=== PATIENT | female | born 2000 | race Hispanic/Latino ===

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

== ENCOUNTER 2019-04-10 21:46 | Emergency (ER) | payer OTHER ==
[~2019-04-10] VITALS: Ht 182.9 cm; Wt 117.9 kg
[2019-04-10] MEDS ORDERED: ONDANSETRON HCL 4 MG ORAL DISINTEGRATING TAB PO ONE (22:15)
[2019-04-10] MEDS ORDERED: KETOROLAC TROMETHAMINE 60 MG/2 ML VIAL IM ONE (22:15)
[2019-04-10] MEDS ORDERED: ONDANSETRON HCL 4 MG ORAL DISINTEGRATING TAB ONE (22:16)
[2019-04-10] MEDS ORDERED: KETOROLAC TROMETHAMINE 30 MG/ML VIAL ONE (22:16)
--- NOTE | 2019-04-10 22:52 | Diagnostic Imaging Report ---
EXAM: CT Abdomen and Pelvis WITHOUT contrast INDICATION: Left upper quadrant pain radiating to the left lower quadrant. Nausea and vomiting. COMPARISON: None. TECHNIQUE: Abdomen and pelvis were scanned utilizing a multidetector helical scanner from the lung base to the pubic symphysis without administration of IV contrast. Absence of intravenous contrast decreases sensitivity for detection of focal lesions and vascular pathology. Coronal and sagittal reformations were obtained. Routine protocol was performed. IV CONTRAST: None. ORAL CONTRAST: Water RADIATION DOSE: Total DLP: 849.87 mGy*cm Estimated effective dose: (DLP x 0.015 x size factor) mSv COMPLICATIONS: None FINDINGS: LINES and TUBES: None. LOWER THORAX: Unremarkable HEPATOBILIARY: No focal hepatic lesions. No biliary ductal dilation. GALLBLADDER: No radio-opaque stones or sludge. No wall thickening. SPLEEN: No splenomegaly. PANCREAS: No focal masses or ductal dilatation. ADRENALS: No adrenal nodules KIDNEYS/URETERS: No hydronephrosis. No cystic or solid mass lesions. No stones. GI TRACT: No abnormal distention, wall thickening, or evidence of bowel obstruction. Appendix is normal. PELVIC ORGANS/BLADDER: Unremarkable. LYMPH NODES: Mildly prominent right lower quadrant lymph nodes are nonspecific, otherwise no lymphadenopathy. VESSELS: Unremarkable. PERITONEUM / RETROPERITONEUM: Trace volume pelvic free fluid likely physiologic. There is a subtle, 3.8 cm fat attenuation structure abutting the anterior lateral aspect of the proximal descending colon, associated with mild surrounding fat stranding seen on coronal image 61, which may reflect mild evolving epiploic appendagitis. BONES: Unremarkable. SOFT TISSUES: Unremarkable. IMPRESSION: 1. Possible resolving mild left upper quadrant (descending colon) epiploic appendagitis, otherwise no acute abdominal pelvic abnormality. Signed by: Dr. Franny Estrella M.D. on 04/10/2019 10:50 PM
== END 2019-04-10 23:15 | disposition home or self-care (01) ==
LOC: FSED 21:46
DX: R10.12 Left upper quadrant pain (principal); R11.2 Nausea with vomiting, unspecified; K63.89 Other specified diseases of intestine
CPT/HCPCS: 74176; 80053; 80076; 81003; 81025; 85025; 96372; 99283; J1885; Q0162

== ENCOUNTER 2019-04-13 00:19 | Emergency (ER) | payer OTHER ==
[~2019-04-13] VITALS: Ht 180.3 cm; Wt 117.9 kg
--- OUTSIDE RECORDS SUMMARY | 2019-04-13 00:21 | XMS REPORT ---
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 Allergies, Adverse Reactions, Alerts This patient has no known allergies or adverse reactions. Medications This patient has no known medications. Results Test Description Test Time Test Comments Text Results Atomic Results Result Comments CT ABD/PEL WO CONTRAST-HOPD 2019-04-10 22:39:00 [place] [address] Patient Name: DMITRY DAWKINS MR #: [id number] : 2000 Age/Sex: 18/F Req #: [id number] Adm Physician: Ordered by: ORTEGA MAS MD Report #: [id number] Location: [facility] Room/Bed: Procedure: [id number] HOPD/CT ABD/PEL WO CONTRAST-HOPD Exam Date: 04/10/19 Exam Time: 2225 REPORT STATUS: Signed EXAM: CT Abdomen and Pelvis WITHOUT contrast INDICATION: Left upper quadrant pain radiating to the left lower quadrant. Nausea and vomiting. COMPARISON: None. TECHNIQUE: Abdomen and pelvis were scanned utilizing a multidetector helical scanner from the lung base to the pubic symphysis without administration of IV contrast. Absence of intravenous contrast decreases sensitivity for detection of focal lesions and vascular pa thology. Coronal and sagittal reformations were obtained. Routine protocol was performed. IV CONTRAST: None. ORAL CONTRAST: Water RADIATION DOSE: Total DLP: 849.87 mGy*cm Estimated effective dose: (DLP x 0.015 x size factor) mSv COMPLICATIONS: None FINDINGS: LINES and TUBES: None. LOWER THORAX: Unremarkable HEPATOBILIARY: No focal hepatic lesions. No biliary ductal dilation. GALLBLADDER: No radio-opaque stones or sludge. No wall thickening. SPLEEN: No splenomegaly. PANCREAS: No focal masses or ductal dilatation. ADRENALS: No adrenal nodules KIDNEYS/URETERS: No hydronephrosis. No cystic or solid mass lesions. No stones. GI TRACT: No abnormal distention, wall thickening, or evidence of bowel obstruction. Appendix is normal. PELVIC ORGANS/BLADDER: Unremarkable. LYMPH NODES: Mildly prominent right lower quadrant lymph nodes are nonspecific, otherwise no lymphadenopathy. VESSELS: Unremarkable. PERITONEUM / RETROPERITONEUM: Trace volume pelvic free fluid likely physiologic. There is a subtle, 3.8 cm fat attenuation structure abutting the anterior lateral aspect of the proximal descending colon, associated with mild surrounding fat stranding seen on coronal image 61, which may reflect mild evolving epiploic appendagitis. BONES: Unremarkable. SOFT TISSUES: Unremarkable. IMPRESSION: 1. Possible resolving mild left upper quadrant (descending colon) epiploic appendagitis, otherwise no acute abdominal pelvic abnormality. Signed by: Dr. Franny Weinstein M.D. on 04/10/2019 10:50 PM Dictated By: JENNYFER WEINSTEIN MD, MD 49 Transcribed By: CURT on 04/10/192249 COPY TO: ORTEGA MAS MD
--- NOTE | 2019-04-13 01:53 | Diagnostic Imaging Report ---
EXAM: CT Abdomen and Pelvis WITHOUT contrast INDICATION: Abdominal pain. COMPARISON: 04/10/2019. TECHNIQUE: Abdomen and pelvis were scanned utilizing a multidetector helical scanner from the lung base to the pubic symphysis without administration of IV contrast. Absence of intravenous contrast decreases sensitivity for detection of focal lesions and vascular pathology. Coronal and sagittal reformations were obtained. Routine protocol was performed. IV CONTRAST: None. ORAL CONTRAST: Water RADIATION DOSE: Total DLP: 818.86 mGy*cm Estimated effective dose: (DLP x 0.015 x size factor) mSv COMPLICATIONS: None FINDINGS: LINES and TUBES: None. LOWER THORAX: Unremarkable HEPATOBILIARY: The liver is diffuse hypodense compared to the spleen, consistent with diffuse hepatic diffuse hepatic steatosis. No focal hepatic lesions. No biliary ductal dilation. GALLBLADDER: No radio-opaque stones or sludge. No wall thickening. SPLEEN: No splenomegaly. PANCREAS: No focal masses or ductal dilatation. ADRENALS: No adrenal nodules KIDNEYS/URETERS: No hydronephrosis. No cystic or solid mass lesions. No stones. GI TRACT: No abnormal distention, wall thickening, or evidence of bowel obstruction. Appendix is normal. PELVIC ORGANS/BLADDER: Unremarkable. LYMPH NODES: Mildly prominent right lower quadrant lymph nodes and retroperitoneal lymph nodes are again observed which are nonspecific. VESSELS: Unremarkable. PERITONEUM / RETROPERITONEUM: No loculated fluid collections. Mild stranding about the proximal descending colon again observed, however, to lesser degree than on the prior examination. BONES: Unremarkable. SOFT TISSUES: Unremarkable. IMPRESSION: Mild fat stranding about the proximal descending colon again observed. No new abnormalities. Signed by: Dr. Franny Estrella M.D. on 04/13/2019 1:50 AM
== END 2019-04-13 02:02 | disposition home or self-care (01) ==
LOC: FSED 00:19
DX: R10.12 Left upper quadrant pain (principal); K63.89 Other specified diseases of intestine; F17.200 Nicotine dependence, unspecified, uncomplicated; F43.10 Post-traumatic stress disorder, unspecified; F41.9 Anxiety disorder, unspecified; F32.9 Major depressive disorder, single episode, unspecified; G47.00 Insomnia, unspecified
CPT/HCPCS: 74176; 99283

== ENCOUNTER 2019-11-05 16:58 | Emergency (ER) | payer OTHER ==
[~2019-11-05] VITALS: Ht 172.7 cm; Wt 102.1 kg
--- NOTE | 2019-11-05 17:18 | Emergency Department Note ---
History of Present Illnes History of Present Illness History of Present Illness This is a 19 year old female LLQ pain . Onset (how long ago): day(s) (CHAPINCITO MENDOZA DO) Historian: Patient Onset (how long ago): day(s) (2) Location: abdomen LLQ PAIN Quality: DULL Radiation: Denies non-radiation, Denies back, Denies neck, Denies extremity, Denies abdomen, Denies periumbilical, Denies flank, Denies proximal, Denies distal, Denies other Severity: mild Onset quality: gradual Duration (how long): day(s) (2) Timing of current episode: constant, intermittent Progression: waxing and waning Chronicity: new Context: Denies recent illness, Denies recent surgery, Denies recent immobilization, Denies recent travel, Denies trauma/injury, Denies new medications, Denies hx of DVT/PE, Denies non-compliance w/ medications, Denies other Relieving factors: none Exacerbating factors: none Associated symptoms: Reports denies other symptoms Treatments prior to arrival: none (ORTEGA MAS MD) Past Medical/Family History Physician Review I have reviewed the patient's past medical and family history. Any updates have been documented here. (CHAPINCITO MENDOZA DO) Past Medical History Recent Fever: No Clinical Suspicion of Infectio: No New/Unexplained Change in Ment: No Past Medical History: None Other Medical History: chronic abd pain PTSD ANXIETY DEPRESSION INSOMNIA Past Surgical History: T&A Other Surgery: Tonsillectomy Adnoidectomy (CHAPINCITO MENDOZA DO) Past Medical History: None Past Surgical History: None (ORTEGA MAS MD) Social History Smoking Cessation: Never Smoker Alcohol Use: None (ORTEGA MAS MD) Other Last Tetanus: UTD (CHAPINCITO MENDOZA DO) Review of Systems Review of Systems Constitutional: Reports no symptoms EENTM: Reports no symptoms Cardiovascular: Reports no symptoms Respiratory: Reports no symptoms Gastrointestinal: Reports abdominal pain Genitourinary: Reports no symptoms Musculoskeletal: Reports no symptoms Integumentary: Reports no symptoms Neurological: Reports no symptoms Psychological: Reports no symptoms Endocrine: Reports no symptoms Hematological/Lymphatic: Reports no symptoms (CHAPINCITO MENDOZA DO) Constitutional: Reports no symptoms EENTM: Reports no symptoms Cardiovascular: Reports no symptoms Respiratory: Reports no symptoms Gastrointestinal: Reports as per HPI Genitourinary: Reports no symptoms Musculoskeletal: Reports no symptoms Integumentary: Reports no symptoms Neurological: Reports no symptoms Psychological: Reports no symptoms Endocrine: Reports no symptoms Hematological/Lymphatic: Reports no symptoms (ORTEGA MAS MD) Physical Exam Related Data Allergies: Coded Allergies: No Known Allergies (Unverified , 12/02/15) Vital signs reviewed: Yes (ORTEGA MAS MD) Physical Exam CONSTITUTIONAL HENT EYES NECK PULMONARY CARDIOVASCULAR GASTROINTESTINAL GENITOURINARY SKIN MUSCULOSKELETAL NEUROLOGICAL PSYCHOLOGICAL (CHAPINCITO MENDOZA DO) Constitutional: Present well-developed, Present well-nourished HENT: Present normocephalic, Present atraumatic, Present oropharynx clear/moist, Present nose normal HENT L/R: Present left ext ear normal, Present right ext ear normal Eyes: Reports PERRL, Reports conjunctivae normal Neck: Present ROM normal Pulmonary: Present effort normal, Present breath sounds normal Cardiovascular: Present regular rhythm, Present heart sounds normal, Present capillary refill normal, Present normal rate Abdominal: Present soft, Present bowel sounds normal, Present tender (LLQ) Genitourinary: Present exam deferred Skin: Present warm, Present dry Musculoskeletal: Present ROM normal Neurological: Present alert, Present oriented x 3, Present no gross motor or sensory deficits Psychological: Present mood/affect normal, Present judgement normal (ORTEGA MAS MD) Results Laboratory Lab results reviewed: Yes (ORTEGA MAS MD) Imaging Imaging results reviewed: Yes Impressions [place] [address] Patient Name: DMITRY DAWKINS MR #: [id number] : 2000 Age/Sex: 19/F Req #: [id number] Adm Physician: Ordered by: CHAPINCITO MENDOZA DO Report #: [id number] [facility] Room/Bed: Procedure: [id number] HOPD/CT ABD/PEL WO CONTRAST-HOPD Exam Date: 11/05/19 Exam Time: 1811 REPORT STATUS: Signed EXAM: CT Abdomen and Pelvis WITHOUT contrast INDICATION: Left lower quadrant abdominal pain. COMPARISON: Multiple prior CT abdomen and pelvis examinations most recent dated 04/13/2019. TECHNIQUE: Abdomen and pelvis were scanned utilizing a multidetector helical scanner from the lung base to the pubic symphysis without administration of IV contrast. Absence of intravenous contrast decreases sensitivity for detection of focal lesions and vascular pathology. Coronal and sagittal reformations were obtained. Routine protocol was performed. IV CONTRAST: None. ORAL CONTRAST: Water RADIATION DOSE: Total DLP: 969.35 mGy*cm Estimated effective dose: (DLP x 0.015 x size factor) mSv COMPLICATIONS: None FINDINGS: LINES and TUBES: None. LOWER THORAX: Unremarkable HEPATOBILIARY: No focal hepatic lesions. No biliary ductal dilation. GALLBLADDER: No radio-opaque stones or sludge. No wall thickening. SPLEEN: No splenomegaly. PANCREAS: No focal masses or ductal dilatation. ADRENALS: No adrenal nodules KIDNEYS/URETERS: No hydronephrosis. No cystic or solid mass lesions. No stones. GI TRACT: The previously seen stranding about the proximal descending colon again has resolved. No abnormal distention, wall thickening, or evidence of bowel obstruction. Appendix is normal. PELVIC ORGANS/BLADDER: Unremarkable. LYMPH NODES: Mildly prominent mesenteric and retroperitoneal lymph nodes are again observed which are nonspecific. VESSELS: Unremarkable. PERITONEUM / RETROPERITONEUM: No loculated fluid collections. BONES: Unremarkable. SOFT TISSUES: Unremarkable. IMPRESSION: 1. Stable mildly prominent mesenteric and retroperitoneal lymph nodes are nonspecific likely reactive. 2. The previously seen stranding about the proximal descending colon again has resolved. 3. No new CT findings to correlate with patient's left lower quadrant pain. Signed by: Jonathan Javier MD on 11/05/2019 7:19 PM Dictated By: JONATHAN JAVIER MD 18 Transcribed By: CURT on 11/05/191918 COPY TO: CHAPINCITO MENDOZA DO~ (CHAPINCITO MENDOZA DO) Diagnostics Tests Diagnostic test(s) reviewed: Yes (ORTEGA MAS MD) Assessment & Plan Medical Decision Making MDM DIVERTICULITIS UTI (ORTEGA MAS MD) Reassessment Reassessment BETTER (ORTEGA MAS MD) Assessment & Plan Final Impression: (1) Abdominal pain, LLQ (left lower quadrant) (2) UTI (urinary tract infection) (ORTEGA MAS MD) Depart Disposition: HOME, SELF-snf Meds Active Scripts Sulfamethoxazole/Trimethoprim (BACTRIM DS TABLET) 1 Each Tablet, 1 TAB PO Q12H, #28 TAB Prov:GARLAND HERNANDEZ 11/07/19 Prednisone (PREDNISONE) 20 Mg Tab, 60 MG PO DAILY PRN for MODERATE PAIN (4-6), #15 TAB TAKE 3 20 MG PILLS Prov:GARLAND HERNANDEZ 11/07/19 Ondansetron (ONDANSETRON ODT) 8 Mg Tab.rapdis, 4 MG PO Q4HR PRN for NAUSEA AND VOMITING, #20 TAB 1 Refill Prov:GARLAND HERNANDEZ 11/07/19 Reported Medications [Takes No Daily Meds] No Conflict Check 06/10/16 CHAPINCITO MENDOZA DO Nov 05, 2019 17:18 ORTEGA MAS MD Nov 05, 2019 19:37
[2019-11-05] MEDS ORDERED: KETOROLAC TROMETHAMINE 60 MG/2 ML VIAL IM ONE (17:45)
--- OUTSIDE RECORDS SUMMARY | 2019-11-05 17:49 | XMS REPORT | Continuity of Care Document ---
Author Author [facility] t Organization [facility] Address [address] [place] [address] Phone Unavailable Care Team Providers Care Nut Grinder Name Role Phone NONSTAFF PCP Unavailable TIFFANIE LAGUNAS Attphys Unavailable ORTEGA MAS Attphys Unavailable Payers Payer Name Policy Type Policy Number Effective Date Expiration Date [id number] 2015 00:00:00 [facility] Problems This patient has no known problems. Allergies, Adverse Reactions, Alerts Allergy Name Allergy Type Status Severity Reaction(s) Onset Date Inacti ve Date Treating Clinician Comments Source No Known Allergies DA Active U 2019-08-27 00:00:00 [facility] Medications Ordered Medication Name Filled Medication Name Start Date Stop Da te Current Medication? Ordering Clinician Indication Dosage Frequency Signature (SIG) Comments Components Source Takes No Daily Meds Takes No Daily Meds Yes [facility] Cefdinir (Omnicef) 300 Mg Capsule, Cefdinir (Omnicef) 300 Mg Cap cody, 2016-06-10 00:00:[address] [facility] Naproxen (Naprosyn) 500 Mg Tablet, Naproxen (Naprosyn) 500 Mg Ta blet, 2016-06-10 00:00:[address] [facility] Ondansetron (Zofran Odt) 4 Mg Tab.rapdis, 4 Mg Ondanse luis antonio (Zofran Odt) 4 Mg Tab.rapdis, 4 Mg 2016-06-10 00:00:00 [address] [facility] Tylenol , Tylenol , 2015-12-02 00:00:[address] [facility] Procedures This patient has no known procedures. Encounters Start Date/Time End Date/Time [facility] ID Source 2019-04-13 00:19:00 2019-04-13 02:02:00 Departed Emergency Room 1 TIFFANIE LAGUNAS [facility] [id number] [facility] 2019-04-10 21:46:00 2019-04-10 23:15:00 Departed Emergency Room 1 ORTEGA MAS [facility] [id number] [facility] 2018-03-09 22:52:00 2018-03-10 00:04:00 Departed Emergency Room [facility] [id number] [facility] 2017-05-25 08:30:00 2017-05-25 09:55:00 Departed Emergency Room [facility] [id number] [facility] 2017-05-23 09:16:00 2017-05-23 12:06:00 Departed Emergency Room [facility] [id number] [facility] Results Test Description Test Time Test Comments Results Result Comments Source - CT ABD PELVIS W/CONT 2019-08-27 21:48:00 David e: DMITRY DAWKINS [facility] FSED : 2000 Age/S: 19 / F [address] [facility] [address] Unit #: [id number] Loc: [address] Phys: Brandon Kim MD [place], [place] [address] Acct: [id number] Dis Date: Status: PRE ER PHONE #: Exam Date: 08/27/20198 FAX #: Reason: l sided abd pain, n/v EXAMS: CPT CODE: [id number] CT ABD PELVIS W/CONT 27353 EXAM: CT of the abdomen and pelvis with contrast; INFORMATION: Left-sided abdominal pain, nausea and vomiting; TECHNIQUE: CT dose reduction protocol; 5 mm cuts were obtained through the abdomen and pelvis during and after intravenous infusion of contrast material. FINDINGS: Liver, spleen and pancreas are of normal size and shape; they show homogeneous enhancement without focal lesions. No abnormalities of the biliary system. Adrenal glands and kidneys are unremarkable; no evidence of adenopathy; No evidence of appendicitis or other acute bowel abnormalities. No pelvic mass lesions. No abnormal fluid collections. Scans through the lung bases are clear. IMPRESSION: No evidence of acute abdominal or pelvic abnormalities. Location code: [facility] at 2147 Reported and signed by: Hugo Ma M.D. CC: Brandon Kim MD Technologist:Norma Khan CTDI: DLP: Trnscb Date/Time: 08/27/2019 (2147) [email or web address] Orig Print D/T: S: 08/27/2019 (2150) PAGE 1 Signed Report BASIC METABOLIC PANEL 2019-08-27 21:16:00 Test Item SODIUM (test code = NA) 143 mmol/L 128-145 N POTASSIUM (test code = K) 3.7 mmol/L 3.5-5.1 N CHLORIDE (test code = CL) 107.0 mmol/L 98-107 N CARBON DIOXIDE (test code = CO2) 27.8 mmol/L 22-29 N ANION GAP (test code = GAP) 12 mmol/L 10-20 N GLUCOSE (test code = GLU) 94 mg/dL 70-110 N BLOOD UREA NITROGEN (test code = BUN) 8 mg/dL 7-22 N GLOMERULAR FILTRATION RATE (test code = GFR) > 60 mL/min >=60 Estimated GFR by using Modified MDRD formula.Chronic kidney disease is defined as either kidney damageor GFR <60 mL/min/1.73 m2 for >3 months. CREATININE (test code = CREAT) 0.68 mg/dL 0.55-1.3 N BUN/CREATININE RATIO (test code = BUN/CREA) 11.8 10-20 N CALCIUM (test code = CA) 8.8 mg/dL 8.0-10.5 N HEPATIC FUNCTION [id number] 21:16:00* Test Item Value Reference Range Interpretation Comments TOTAL PROTEIN (test code = PROT) 7.0 gram/dL 6.1-7.8 N ALBUMIN (test code = ALB) 3.8 g/dL 3.3-4.4 N GLOBULIN (test code = GLOB) 3.2 G/DL 1-10 N ALBUMIN/GLOBULIN RATIO (test code = A/G) 1.2 0.75-1.50 N BILIRUBIN TOTAL (test code = BILT) 0.10 mg/dL 0.2-1.2 L BILIRUBIN DIRECT (test code = BILD) 0.00 mg/dL 0.0-0.30 N SGOT/AST (test code = AST) 10 U/L 10-39 N SGPT/ALT (test code = ALT) 30 U/L 10-69 N ALKALINE PHOSPHATASE TOTAL (test code = ALKP) 86 U/L 50-139 N [id number] 21:16:00* Test Item Value Reference Range Interpretation Comments LIPASE (test code = LIP) 116 Unit/L 144-286 L HCG SERUM [id number] 21:16:00* Test Item Value Reference Range Interpretation Comments HCG SERUM QUAL (test code = HCGQL) NEGATIVE NEGATIVE This HCGQL test is NOT applicable for MALE patients.Check with nurse about probable order error.If Tumor Marker Test needed, nurse should order test "HCGTU"(Test #550.15785) BASIC METABOLIC [id number] 21:06:00* Test Item Value Reference Range Interpretation Comments SODIUM (test code = NA) 143 mmol/L 128-145 N POTASSIUM (test code = K) 3.7 mmol/L 3.5-5.1 N CHLORIDE (test code = CL) 107.0 mmol/L 98-107 N CARBON DIOXIDE (test code = CO2) 27.8 mmol/L 22-29 N ANION GAP (test code = GAP) 12 mmol/L 10-20 N GLUCOSE (test code = GLU) 94 mg/dL 70-110 N BLOOD UREA NITROGEN (test code = BUN) 8 mg/dL 7-22 N GLOMERULAR FILTRATION RATE (test code = GFR) > 60 mL/min >=60 Estimated GFR by using Modified MDRD formula.Chronic kidney disease is defined as either kidney damageor GFR <60 mL/min/1.73 m2 for >3 months. CREATININE (test code = CREAT) 0.68 mg/dL 0.55-1.3 N BUN/CREATININE RATIO (test code = BUN/CREA) 11.8 10-20 N CALCIUM (test code = CA) 8.8 mg/dL 8.0-10.5 N HEPATIC FUNCTION [id number] 21:06:00* Test Item Value Reference Range Interpretation Comments TOTAL PROTEIN (test code = PROT) gram/dL 6.4-8.2 ALBUMIN (test code = ALB) g/dL 3.4-5.0 GLOBULIN (test code = GLOB) G/DL 1-10 ALBUMIN/GLOBULIN RATIO (test code = A/G) 0.75-1.50 BILIRUBIN TOTAL (test code = BILT) mg/dL 0.0-1.0 BILIRUBIN DIRECT (test code = BILD) mg/dL 0.0-0.20 SGOT/AST (test code = AST) IUnit/L 15-37 SGPT/ALT (test code = ALT) IUnit/L 12-78 ALKALINE PHOSPHATASE TOTAL (test code = ALKP) IUnit/L 45-117 [id number] 21:06:00* Test Item Value Reference Range Interpretation Comments LIPASE (test code = LIP) U/L 73.0-393.0 HCG SERUM [id number] 21:06:00* Test Item Value Reference Range Interpretation Comments HCG SERUM QUAL (test code = HCGQL) NEGATIVE NEGATIVE This HCGQL test is NOT applicable for MALE patients.Check with nurse about probable order error.If Tumor Marker Test needed, nurse should order test "HCGTU"(Test #550.50971) BASIC METABOLIC [id number] 21:04:00* Test Item Value Reference Range Interpretation Comments SODIUM (test code = NA) mmol/L 136-145 POTASSIUM (test code = K) mmol/L 3.5-5.1 CHLORIDE (test code = CL) mmol/L 98-107 CARBON DIOXIDE (test code = CO2) mmol/L 21-32 ANION GAP (test code = GAP) mmol/L 10-20 GLUCOSE (test code = GLU) mg/dL 70-110 BLOOD UREA NITROGEN (test code = BUN) mg/dL 7-22 GLOMERULAR FILTRATION RATE (test code = GFR) mL/min >=60 CREATININE (test code = CREAT) mg/dL 0.55-1.02 BUN/CREATININE RATIO (test code = BUN/CREA) 10-20 CALCIUM (test code = CA) mg/dL 8.5-10.1 HEPATIC FUNCTION [id number] 21:04:00* Test Item Value Reference Range Interpretation Comments TOTAL PROTEIN (test code = PROT) gram/dL 6.4-8.2 ALBUMIN (test code = ALB) g/dL 3.4-5.0 GLOBULIN (test code = GLOB) G/DL 1-10 ALBUMIN/GLOBULIN RATIO (test code = A/G) 0.75-1.50 BILIRUBIN TOTAL (test code = BILT) mg/dL 0.0-1.0 BILIRUBIN DIRECT (test code = BILD) mg/dL 0.0-0.20 SGOT/AST (test code = AST) IUnit/L 15-37 SGPT/ALT (test code = ALT) IUnit/L 12-78 ALKALINE PHOSPHATASE TOTAL (test code = ALKP) IUnit/L 45-117 [id number] 21:04:00* Test Item Value Reference Range Interpretation Comments LIPASE (test code = LIP) U/L 73.0-393.0 HCG SERUM [id number] 21:04:00* Test Item Value Reference Range Interpretation Comments HCG SERUM QUAL (test code = HCGQL) NEGATIVE NEGATIVE This HCGQL test is NOT applicable for MALE patients.Check with nurse about probable order error.If Tumor Marker Test needed, nurse should order test "HCGTU"(Test #550.64594) CBC W/O [id number] 20:57:00* Test Item Value Reference Range Interpretation Comments WHITE BLOOD CELL (test code = WBC) 10.2 K/mm3 4.5-12.5 N RED BLOOD CELL (test code = RBC) 5.17 mill/mm3 3.7-5.2 N HEMOGLOBIN (test code = HGB) 11.4 gram/dL 11.5-15.5 L HEMATOCRIT (test code = HCT) 37.3 % 36.0-46.0 N MEAN CELL VOLUME (test code = MCV) 72.1 fL 80-98 L MEAN CELL HGB (test code = MCH) 22.1 picogram 27.0-33.0 L MEAN CELL HGB CONCETRATION (test code = MCHC) 30.6 gram/dL 33.0-36. 0 L RED CELL DISTRIBUTION WIDTH (test code = RDW) 17.6 % 11.6-16. 2 H RED CELL DISTRIBUTION WIDTH SD (test code = RDW-SD) 44.9 fL 37 .0-51.0 N PLATELET COUNT (test code = PLT) 359 K/mm3 150-450 N MEAN PLATELET VOLUME (test code = MPV) 8.8 fL 6.7-11.0 N URINALYSIS [id number] 20:27:00* Test Item Value Reference Range Interpretation Comments UA COLOR (test code = COLU) YELLOW YELLOW UA APPEARANCE (test code = APPU) CLOUDY CLEAR A UA GLUCOSE DIPSTICK (test code = DGLUU) NEGATIVE mg/dL NEGATIVE UA BILIRUBIN DIPSTICK (test code = BILU) NEGATIVE NEGATIVE UA KETONE DIPSTICK (test code = KETU) NEGATIVE mg/dL NEGATIVE UA SPECIFIC GRAVITY (test code = SGU) 1.020 1.001-1.035 UA BLOOD DIPSTICK (test code = ROBB) 1+ (Small) NEGATIVE A UA PH DIPSTICK (test code = GEOVANI) 8.0 5.0-8.0 UA PROTEIN DIPSTICK (test code = PROU) TRACE (15) mg/dL Neg-15 UA UROBILINIOGEN DIPSTICK (test code = URO) 1 mg/dL (1+) mg/dL 0.0 -0.2 UA NITRITE DIPSTICK (test code = ABRAHAN) NEGATIVE NEGATIVE UA LEUKOCYTE ESTERASE DIPSTICK (test code = LEUU) 2+ uL NEGA TIVE A UA MICROSCOPIC NEEDED? (test code = UAMICRO) YES UA WBC (test code = WBCU) 3-5 per HPF 0-5 UA RBC (test code = RBCU) 0-3 per HPF 0-5 UA EPITHELIAL CELLS (test code = EPIU) Moderate (5-10/hpf) per HPF Few UA BACTERIA (test code = BACU) FEW per HPF NONE UA AMORPHOUS SEDIMENT (test code = AMORU) MANY per LPF NONE A Urine Source? Clean CatchURINALYSIS [id number] 20:24:00* Test Item Value Reference Range Interpretation Comments UA COLOR (test code = COLU) YELLOW YELLOW UA APPEARANCE (test code = APPU) CLOUDY CLEAR A UA GLUCOSE DIPSTICK (test code = DGLUU) NEGATIVE mg/dL NEGATIVE UA BILIRUBIN DIPSTICK (test code = BILU) NEGATIVE NEGATIVE UA KETONE DIPSTICK (test code = KETU) NEGATIVE mg/dL NEGATIVE UA SPECIFIC GRAVITY (test code = SGU) 1.020 1.001-1.035 UA BLOOD DIPSTICK (test code = ROBB) 1+ (Small) NEGATIVE A UA PH DIPSTICK (test code = GEOVANI) 8.0 5.0-8.0 UA PROTEIN DIPSTICK (test code = PROU) TRACE (15) mg/dL Neg-15 UA UROBILINIOGEN DIPSTICK (test code = URO) 1 mg/dL (1+) mg/dL 0.0 -0.2 UA NITRITE DIPSTICK (test code = ABRAHAN) NEGATIVE NEGATIVE UA LEUKOCYTE ESTERASE DIPSTICK (test code = LEUU) 2+ uL NEGA TIVE A UA MICROSCOPIC NEEDED? (test code = UAMICRO) UA WBC (test code = WBCU) per HPF 0-5 UA RBC (test code = RBCU) per HPF 0-5 UA EPITHELIAL CELLS (test code = EPIU) per HPF Few UA BACTERIA (test code = BACU) per HPF NONE Urine Source? Clean CatchCT ABD/PEL WO [id number] 01:42:00 [place] [address] Patient Name: DMITRY DAWKINS MR #: [id number] : 0 2000 Age/Sex: 18/F Req #: [id number] Adm Physician: Ordered by: TIFFANIE LAGUNAS MD Report #: [id number] Location: [facility] Room/Bed: Procedure: 0208 -0001 HOPD/CT ABD/PEL WO CONTRAST-HOPD Exam Date: 04/13/19 Exam Time: 0105 REPORT STATU S: Signed EXAM: CT Abdomen and Pelvis WITHOUT contrast INDICATION: Abdomi nal pain. COMPARISON: 04/10/2019. TECHNIQUE: Abdomen and pelvis were scanned u tilizing a multidetector helical scanner from the lung base to the pubic symph ysis without administration of IV contrast. Absence of intravenous contrast de creases sensitivity for detection of focal lesions and vascular pathology. Cor onal and sagittal reformations were obtained. Routine protocol was performed. IV CONTRAST: None. ORAL CONTRAST: Water RADIATION DOSE: Total DLP: 818.86 mGy*cm Estimated effective d ose: (DLP x 0.015 x size factor) mSv COMPLICATIONS: None FIND INGS: LINES and TUBES: None. LOWER THORAX: Unremarkable HEPATOBI LIARY: The liver is diffuse hypodense compared to the spleen, consistent with diffuse hepatic diffuse hepatic steatosis. No focal hepatic lesions. No bilia ry ductal dilation. GALLBLADDER: No radio-opaque stones or sludge. No wal l thickening. SPLEEN: No splenomegaly. PANCREAS: No focal masses or d uctal dilatation. ADRENALS: No adrenal nodules KIDNEYS/URETERS: No hydronephrosis. No cystic or solid mass lesions. No stones. GI TRACT: No abnormal distention, wall thickening, or evidence of bowel obstruction. Appendix is normal. PELVIC ORGANS/BLADDER: Unremarkable. LYMPH N ODES: Mildly prominent right lower quadrant lymph nodes and retroperitoneal ly mph nodes are again observed which are nonspecific. VESSELS: Unremarkable. PERITONEUM / RETROPERITONEUM: No loculated fluid collections. Mild stranding about the proximal descending colon again observed, however, to lesser degree than on the prior examination. BONES: Unremarkable. SOFT TISSUES: Unremarkable. IMPRESSION: Mild fat stranding about the p roximal descending colon again observed. No new abnormalities. Signed by: Dr. Franny Weinstein M.D. on 04/13/2019 1:50 AM Dictated By: JENNYFER RAMIRES MD, MD 9 T ranscribed By: CURT on 04/13/19149 COPY TO: TIFFANIE LAGUNAS MD CT ABD/PEL WO [id number] 22:39:00 [place] [address] Patient Name: DMITRY DAWKINS MR #: [id number] : 2000 Age/Sex: 18/F Req #: [id number] Adm Physician: Ordered by: ORTEGA MAS MD Report #: [id number] Location: [facility] Room/Bed: Procedure: 0205 -0003 HOPD/CT ABD/PEL WO CONTRAST-HOPD Exam Date: 04/10/19 Exam Time: 2224 REPORT STATU S: Signed EXAM: CT Abdomen and Pelvis WITHOUT contrast INDICATION: Left u pper quadrant pain radiating to the left lower quadrant. Nausea and vomiting. COMPARISON: None. TECHNIQUE: Abdomen and pelvis were scanned utilizing a [facility] tid[facility] helical scanner from the lung base to the pubic symphysis without a dministration of IV contrast. Absence of intravenous contrast decreases sensit ivity for detection of focal lesions and vascular pathology. Coronal and sagit missael reformations were obtained. Routine protocol was performed. IV CONTRAST: None. ORAL CONTRAST: Water RADIATION D OSE: Total DLP: 849.87 mGy*cm Estimated effective dose: (DLP x 0. 015 x size factor) mSv COMPLICATIONS: None FINDINGS: RADHA ES and TUBES: None. LOWER THORAX: Unremarkable HEPATOBILIARY: No focal hepatic lesions. No biliary ductal dilation. GALLBLADDER: No radio- opaque stones or sludge. No wall thickening. SPLEEN: No splenomegaly. PANCREAS: No focal masses or ductal dilatation. ADRENALS: No adrenal no dules KIDNEYS/URETERS: No hydronephrosis. No cystic or solid mass lesi ons. No stones. GI TRACT: No abnormal distention, wall thickening, or ev idence of bowel obstruction. Appendix is normal. PELVIC ORGANS/ELI DDER: Unremarkable. LYMPH NODES: Mildly prominent right lower quadrant lymp h nodes are nonspecific, otherwise no lymphadenopathy. VESSELS: Unremarka ble. PERITONEUM / RETROPERITONEUM: Trace volume pelvic free fluid likely physiologic. There is a subtle, 3.8 cm fat attenuation structure abutting the anterior lateral aspect of the proximal descending colon, associated with mild surrounding fat stranding seen on coronal image 61, which may reflect mild ev olving epiploic appendagitis. BONES: Unremarkable. SOFT TISSUES: Unr emarkable. IMPRESSION: 1. Possible resolving mild left uppe r quadrant (descending colon) epiploic appendagitis, otherwise no acute abdomi nal pelvic abnormality. Signed by: Dr. Franny Weinstein M.D. on 04/10/19 10:50 PM Dictated By: JENNYFER WEINSTEIN MD, MD 49 Transcribed By: CURT on 04/10/192249 COPY TO: ORTEGA MAS MD Group A Streptococcus Screen 2017-05-23 11:34:00* Test Item Value Reference Range Interpretation Comments Group A Streptococcus Screen (test code = 50486-7) NEGATIVE [facility] Streptococcus [id number] 11:34:00* Test Item Value Reference Range Interpretation Comments Group A Streptococcus Screen (test code = 27177-4) NEGATIVE [facility] Streptococcus [id number] 11:34:00* Test Item Value Reference Range Interpretation Comments Group A Streptococcus Screen (test code = 70596-4) NEGATIVE [facility] Virus Types A,B Antigen 2017-05-23 10:44:00* Test Item Value Reference Range Interpretation Comments Influenza Virus Types A,B Antigen (test code = 58432-1) [facility]GATIVE [facility]GATIVE [facility],B Antigen 2017-05-23 10:44:00* Test Item Value Reference Range Interpretation Comments Influenza Virus Types A,B Antigen (test code = 19773-8) [facility]GATIVE [facility]GATIVE [facility] A,B Antigen 2017-05-23 10:44:00* Test Item Value Reference Range Interpretation Comments Influenza Virus Types A,B Antigen (test code = 82143-2) NEGATIVE NEGATIVE [facility]
[2019-11-05] MEDS ORDERED: KETOROLAC TROMETHAMINE 60 MG/2 ML VIAL ONE (18:13)
--- NOTE | 2019-11-05 19:23 | Diagnostic Imaging Report ---
EXAM: CT Abdomen and Pelvis WITHOUT contrast INDICATION: Left lower quadrant abdominal pain. COMPARISON: Multiple prior CT abdomen and pelvis examinations most recent dated 04/13/2019. TECHNIQUE: Abdomen and pelvis were scanned utilizing a multidetector helical scanner from the lung base to the pubic symphysis without administration of IV contrast. Absence of intravenous contrast decreases sensitivity for detection of focal lesions and vascular pathology. Coronal and sagittal reformations were obtained. Routine protocol was performed. IV CONTRAST: None. ORAL CONTRAST: Water RADIATION DOSE: Total DLP: 969.35 mGy*cm Estimated effective dose: (DLP x 0.015 x size factor) mSv COMPLICATIONS: None FINDINGS: LINES and TUBES: None. LOWER THORAX: Unremarkable HEPATOBILIARY: No focal hepatic lesions. No biliary ductal dilation. GALLBLADDER: No radio-opaque stones or sludge. No wall thickening. SPLEEN: No splenomegaly. PANCREAS: No focal masses or ductal dilatation. ADRENALS: No adrenal nodules KIDNEYS/URETERS: No hydronephrosis. No cystic or solid mass lesions. No stones. GI TRACT: The previously seen stranding about the proximal descending colon again has resolved. No abnormal distention, wall thickening, or evidence of bowel obstruction. Appendix is normal. PELVIC ORGANS/BLADDER: Unremarkable. LYMPH NODES: Mildly prominent mesenteric and retroperitoneal lymph nodes are again observed which are nonspecific. VESSELS: Unremarkable. PERITONEUM / RETROPERITONEUM: No loculated fluid collections. BONES: Unremarkable. SOFT TISSUES: Unremarkable. IMPRESSION: 1. Stable mildly prominent mesenteric and retroperitoneal lymph nodes are nonspecific likely reactive. 2. The previously seen stranding about the proximal descending colon again has resolved. 3. No new CT findings to correlate with patient's left lower quadrant pain. Signed by: Jonathan Marquez MD on 11/05/2019 7:19 PM
[2019-11-05 19:41] VITALS: BP 125/68
== END 2019-11-05 19:46 | disposition home or self-care (01) ==
LOC: FSED 16:58
DX: R10.32 Left lower quadrant pain (principal); N39.0 Urinary tract infection, site not specified; F43.10 Post-traumatic stress disorder, unspecified
CPT/HCPCS: 74176; 81003; 99284; J1885

== ENCOUNTER 2019-11-07 21:47 | Emergency (ER) | payer OTHER ==
[~2019-11-07] VITALS: Ht 172.7 cm; Wt 102.1 kg
[2019-11-07] MEDS ORDERED: CEFTRIAXONE SOD 1 GM VIAL IM STA (22:11)
[2019-11-07] MEDS ORDERED: ONDANSETRON HCL 4 MG ORAL DISINTEGRATING TAB PO ONE (22:15)
[2019-11-07] MEDS ORDERED: KETOROLAC TROMETHAMINE 60 MG/2 ML VIAL IM ONE (22:15)
[2019-11-07] MEDS ORDERED: ONDANSETRON HCL 4 MG ORAL DISINTEGRATING TAB ONE (22:20)
[2019-11-07] MEDS ORDERED: CEFTRIAXONE SOD 1 GM VIAL ONE (22:20)
--- OUTSIDE RECORDS SUMMARY | 2019-11-07 22:20 | XMS REPORT | Continuity of Care Document ---
Author Author [facility] t Organization [facility] Address [address] [place] [address] Phone Unavailable Care Team Providers Care Director Of Safety And Security Name Role Phone NONSTAFF PCP Unavailable CHAPINCITO MENDOZA Attphys Unavailable TIFFANIE LAGUNAS Attphys Unavailable ORTEGA MAS Attphys Unavailable Payers Payer Name Policy Type Policy Number Effective Date Expiration Date S anum [facility] [id number] 2019 00:00:00 [facility] [id number] 2015 00:00:00 [facility] Problems Condition Name Condition Details Condition Category Status Onset Date Resolution Date Last Treatment Date Treating Clinician Comments Source Left lower quadrant abdominal pain Problem Active [facility] Urinary tract infection Problem Active [facility] Allergies, Adverse Reactions, Alerts Allergy Name Allergy Type Status Severity Reaction(s) Onset Date Inacti ve Date Treating Clinician Comments Source No Known Allergies DA Active U 2019-08-27 00:00:00 [facility] Social History Social Habit Start Date Stop Date Quantity Comments Source Sex Assigned At 2000 00:00:00 2000 00:00:00 Female [facility] Medications Ordered Medication Name Filled Medication Name Start Date Stop Da te Current Medication? Ordering Clinician Indication Dosage Frequency Signature (SIG) Comments Components Source Takes No Daily Meds Takes No Daily Meds Yes [facility] Cefdinir (Omnicef) 300 Mg CAPSULE Cefdinir (Omnicef) 300 Mg CAPS ULE 2016-06-10 00:00:00 No [facility] Naproxen (Naprosyn) 500 Mg TABLET Naproxen (Naprosyn) 500 Mg TAB LET 2016-06-10 00:00:00 No [facility] Ondansetron (Zofran Odt) 4 Mg TAB.RAPDIS Ondansetron ( Zofran Odt) 4 Mg TAB.RAPDIS 2016-06-10 00:00:00 No 4 Every 6 Hours [facility] Tylenol Tylenol 2015-12-02 00:00:00 No [facility] Vital Signs Vital Name Observation Time Observation Value Comments Source Weight 2019-11-05 17:00:00 225 [lb_av] [facility] BMI (Body Mass Index) 2019-11-05 17:00:00 34.2 kg/m2 [facility] Procedures This patient has no known procedures. Plan of Care Planned Activity Planned Date Details Comments Source Instructions Abdominal Pain - Adult [facility] Instructions Urinary Tract Infection - Women [facility] Encounters Start Date/Time End Date/Time Encounter Type Admission Type Attendi [facility] Facility Care Department Encounter ID Source 2019-11-05 16:58:00 2019-11-05 19:46:00 Departed Emergency Room 1 CHAPINCITO MENDOZA [facility] [id number] [facility] 2019-04-12 23:19:00 2019-04-13 01:02:00 Departed Emergency Room 1 TIFFANIE LAGUNAS [facility] [id number] [facility] 2019-04-10 20:46:00 2019-04-10 22:15:00 Departed Emergency Room 1 ORTEGA MAS [facility] [id number] [facility] 2018-03-09 22:52:00 2018-03-10 00:04:[address] [facility] [id number] [facility] 2017-05-25 08:30:00 2017-05-25 09:55:[address] [facility] [id number] [facility] 2017-05-23 09:16:00 2017-05-23 12:06:[address] [facility] [id number] [facility] Results Test Description Test Time Test Comments Results Result Comments Source CT ABD/PEL WO CONTRAST-HOPD 2019-11-05 18:56:00 [place] [address] Patient Name: DMITRY DAWKINS MR #: [id number] : 2000 Age/Sex: 19/F Req #: [id number] Adm Physician: Ordered by: CHAPINCITO MENDOZA DO Report #: [id number] Location: [facility] Room/Bed: Procedure: [id number] HOPD/CT ABD/PEL WO CONTRAST-HOPD Exam Date: 11/05/19 Exam Time: 1811 REPORT STATUS: Signed EXAM: CT Abdomen and Pelvis WITHOUT contrast INDICATION: Left lower quadrant abdominal pain. COMPARISON: Multiple prior CT abdomen and pelvis examinations most recent dated 04/13/2019. TECHNIQUE: Abdomen and pelvis were scanned utilizing a multi detector helical scanner from the lung base to the pubic symphysis without administration of IV contrast. Absence of intravenous contrast decreases sensitivity for detection of focal lesions and vascular pathology. Coronal and sagittal reformations were obtained. Routine protocol was performed. IV CONTRAST: None. ORAL CONTRAST: Water RADIATION DOSE: Total DLP: 969.35 mGy*cm Estimated effective dose: (DLP x 0.015 [...] solid mass lesions. No stones. GI TRACT: The previously seen s tranding about the proximal descending colon again has resolved. No abnormal distention, wall thickening, or evidence of bowel obstruction. Appendix is normal. PELVIC ORGANS/BLADDER: Unremarkable. LYMPH NODES: Mildly prominent mesenteric and retroperitoneal lymph nodes are again observed which are nonspecific. VESSELS: Unremarkable. PERITONEUM / RETROPERITONEUM: No loculated fluid collections. BONES: Unremarkable. SOFT TISSUES: Unremarkable. IMPRESSION: 1. Stable mildly prominent mesenteric and retroperitoneal lymph nodes are nonspecific likely reactive. 2. The previously seen stranding about the proximal descending colon again has resolved. 3. No new CT findings to correlate with patient's left lower quadrant pain. Signed by: Jonathan Javier MD on 11/05/2019 7:19 PM Dictated By: JONATHAN JAVIER MD 18 Transcribed By: CURT on 11/05/191918 COPY TO: CHAPINCITO MENDOZA DO - CT ABD PELVIS W/CONT 2019-08-27 21:48:00 Nam e: DMITRY DAWKINS [facility] : 2000 Age/S: 19 / F [address] [facility] Unit #: [id number] Loc: [address] Phys: Brandon Kim MD [place], [place] [address] Acct: [id number] Dis Date: Status: PRE ER PHONE #: Exam Date: 08/27/20196 FAX #: Reason: l sided abd pain, n/v EXAMS: CPT CODE: [id number] CT ABD PELVIS W/CONT 97377 EXAM: CT of the abdomen and pelvis [...] acute abdominal or pelvic abnormalities. Location code: at 2147 Reported and signed by: Hugo Ma M.D. CC: Brandon Kim MD Technologist:Norma Khan CTDI: DLP: Trnscb Date/Time: 08/27/2019 (2147) [email or web address] Orig Print D/T: S: 08/27/2019 (2150) PAGE [...] CA) 8.8 mg/dL 8.0-10.5 N HEPATIC FUNCTION [id number] 21:16:00* Test Item Value Reference Range Interpretation [...] code = ALKP) 86 U/L 50-139 N [id number] 21:16:00* Test Item Value Reference Range Interpretation Comments LIPASE (test code = LIP) 116 Unit/L 144-286 L HCG SERUM [id number] 21:16:00* Test Item Value Reference Range Interpretation Comments HCG SERUM QUAL (test code = HCGQL) NEGATIVE NEGATIVE This HCGQL test is NOT applicable for MALE patients.Check with nurse about probable order error.If Tumor Marker Test needed, nurse should order test "HCGTU"(Test #550.86068) BASIC METABOLIC [id number] 21:06:00* Test Item Value Reference Range Interpretation [...] CA) 8.8 mg/dL 8.0-10.5 N HEPATIC FUNCTION [id number] 21:06:00* Test Item Value Reference Range Interpretation [...] TOTAL (test code = ALKP) IUnit/L 45-117 [id number] 21:06:00* Test Item Value Reference Range Interpretation Comments LIPASE (test code = LIP) U/L 73.0-393.0 HCG SERUM [id number] 21:06:00* Test Item Value Reference Range Interpretation Comments HCG SERUM QUAL (test code = HCGQL) NEGATIVE NEGATIVE This HCGQL test is NOT applicable for MALE patients.Check with nurse about probable order error.If Tumor Marker Test needed, nurse should order test "HCGTU"(Test #550.59346) BASIC METABOLIC [id number] 21:04:00* Test Item Value Reference Range Interpretation [...] code = CA) mg/dL 8.5-10.1 HEPATIC FUNCTION [id number] 21:04:00* Test Item Value Reference Range Interpretation [...] TOTAL (test code = ALKP) IUnit/L 45-117 [id number] 21:04:00* Test Item Value Reference Range Interpretation Comments LIPASE (test code = LIP) U/L 73.0-393.0 HCG SERUM [id number] 21:04:00* Test Item Value Reference Range Interpretation Comments HCG SERUM QUAL (test code = HCGQL) NEGATIVE NEGATIVE This HCGQL test is NOT applicable for MALE patients.Check with nurse about probable order error.If Tumor Marker Test needed, nurse should order test "HCGTU"(Test #550.50799) CBC W/O [id number] 20:57:00* Test Item Value Reference Range Interpretation [...] = MPV) 8.8 fL 6.7-11.0 N URINALYSIS [id number] 20:27:00* Test Item Value Reference Range Interpretation [...] LPF NONE A Urine Source? Clean CatchURINALYSIS [id number] 20:24:00* Test Item Value Reference Range Interpretation [...] NONE Urine Source? Clean CatchCT ABD/PEL WO [id number] 01:42:00 [place] [address] Patient Name: DMITRY DAWKINS MR #: [id number] : 0 2000 Age/Sex: 18/F Req #: [id number] Adm Physician: Ordered by: TIFFANIE LAGUNAS MD Report #: [id number] Location: [facility] Room/Bed: Procedure: [id number] -[id number] HOPD/CT ABD/PEL WO [...] or solid mass lesions. No stones. GI TRACT : No abnormal distention, wall thickening, or evidence of bowel obstruction. Appendix is normal. PELVIC ORGANS/BLADDER: Unremarkable. LYMPH N ODES: Mildly prominent right lower quadrant lymph nodes and retroperitoneal ly mph nodes are again observed which are nonspecific. VESSELS: Unremarkable. PERITONEUM / RETROPERITONEUM: No loculated fluid collections. Mild strandin g about the proximal descending colon again observed, however, to lesser degre e than on the prior examination. BONES: Unremarkable. SOFT TISSUES: Unremarkable. IMPRESSION: Mild fat stranding about the p roximal descending colon again observed. No new abnormalities. Signed by: Dr. Franny Weinstein M.D. on 04/13/2019 1:50 AM Dictated By: JENNYFER RAMIRES MD, MD 9 T ranscribed By: CURT on 04/13/19149 COPY TO: TIFFANIE LAGUNAS MD CT ABD/PEL WO [id number] 22:39:00 [place] [address] Patient Name: DMITRY DAWKINS MR #: [id number] : 2000 Age/Sex: 18/F Req #: [id number] Adm Physician: Ordered by: ORTEGA MAS MD Report #: [id number] Location: [facility] Room/Bed: Procedure: [id number] HOPD/CT ABD/PEL WO CONTRAST-HOPD Exam Date: 04/10/19 Exam Time: 5 REPORT STATU S: Signed EXAM: CT Abdomen and Pelvis WITHOUT contrast INDICATION: Left u pper quadrant pain radiating to the left lower quadrant. Nausea and vomiting. COMPARISON: None. TECHNIQUE: Abdomen and pelvis were scanned utilizing a [facility] tidetector helical scanner from the lung base [...] Group A Streptococcus Screen (test code = 69394-2) NE[facility]IVE [facility] [id number] 11:34:00* Test Item Value Reference Range Interpretation Comments Group A Streptococcus Screen (test code = 89234-2) NEGATIVE [facility]G [facility]IVE [facility] Streptococcus [id number] 11:34:00* Test Item Value Reference Range Interpretation Comments Group A Streptococcus Screen (test code = 17286-0) [facility] 2017-05-23 10:44:00* Test Item Value Reference Range Interpretation Comments Influenza Virus Types A,B Antigen (test code = 04287-8) NEGATIVE NEGATIVE [facility],B Antigen 2017-05-23 10:44:00* Test Item Value Reference Range Interpretation Comments Influenza Virus Types A,B Antigen (test code = 22909-3) NEGATIVE NEGATIVE [facility] A,B Antigen 2017-05-23 10:44:00* Test Item Value Reference Range Interpretation Comments Influenza Virus Types A,B Antigen (test code = 66449-9) NEGATIVE NEGATIVE [facility]
--- NOTE | 2019-11-07 22:24 | Emergency Department Note ---
History of Present Illnes History of Present Illness Chief Complaint: suprapubic pain History of Present Illness This is a 19 year old female . Historian: Patient Arrival Mode: Car History limited by: condition of the patient (normal) Onset (how long ago): week(s) (1) Location: see above Quality: sharp Radiation: Reports back Severity: severe Onset quality: gradual Duration (how long): week(s) (1) Timing of current episode: constant Progression: worsening Chronicity: new Context: Denies recent illness, Denies recent surgery, Denies recent immobilization, Denies recent travel, Denies trauma/injury, Denies new medications, Denies hx of DVT/PE, Denies non-compliance w/ medications Relieving factors: none Exacerbating factors: movement Associated symptoms: Reports nausea/vomiting Treatments prior to arrival: none Past Medical/Family History Physician Review I have reviewed the patient's past medical and family history. Any updates have been documented here. Past Medical History Recent Fever: No Clinical Suspicion of Infectio: No New/Unexplained Change in Ment: No Past Medical History: None Other Medical History: PTSD ANXIETY DEPRESSION INSOMNIA Past Surgical History: None Other Surgery: Tonsillectomy Adnoidectomy Social History Smoking Cessation: Never Smoker Counseling Performed: No Any Illegal Drug Use: No TB Exposure/Symptoms: No Physically hurt or threatened: No Family History Family history of heart diseas: No Other Last Tetanus: UTD Any Pre-Existing Lines (PICC,: No Is patient up to date on immun: No Review of Systems Review of Systems Constitutional: Reports no symptoms EENTM: Reports no symptoms Cardiovascular: Reports no symptoms Respiratory: Reports no symptoms Gastrointestinal: Reports as per HPI Genitourinary: Reports no symptoms Musculoskeletal: Reports no symptoms Integumentary: Reports no symptoms Neurological: Reports no symptoms Psychological: Reports no symptoms Endocrine: Reports no symptoms Hematological/Lymphatic: Reports no symptoms Review of other systems: All other systems negative Physical Exam Related Data Allergies: Coded Allergies: No Known Allergies (Unverified , 12/02/15) Triage Vital Signs Vital Signs Date Time Temp Pulse Resp B/P (MAP) Pulse Ox O2 Delivery O2 Flow Rate FiO2 11/07/19 21:55 100.2 89 20 139/74 97 Room Air Vital signs reviewed: Yes Physical Exam CONSTITUTIONAL Constitutional: Present well-developed, Present well-nourished HENT HENT: Present normocephalic, Present atraumatic, Present oropharynx clear/moist, Present nose normal HENT L/R: Present left ext ear normal, Present right ext ear normal EYES Eyes: Reports PERRL, Reports conjunctivae normal NECK Neck: Present ROM normal, Present supple PULMONARY Pulmonary: Present effort normal, Present breath sounds normal CARDIOVASCULAR Cardiovascular: Present regular rhythm, Present heart sounds normal, Present capillary refill normal, Present normal rate GASTROINTESTINAL Abdominal: Present soft, Present bowel sounds normal, Present tender (+SUPRAPUBIC TENDERNESS), Present guarding; Absent mass, Absent rebound GENITOURINARY Genitourinary: Present exam deferred SKIN Skin: Present warm, Present dry MUSCULOSKELETAL Musculoskeletal: Present ROM normal NEUROLOGICAL Neurological: Present alert, Present oriented x 3, Present no gross motor or sensory deficits PSYCHOLOGICAL Psychological: Present mood/affect normal, Present judgement normal Results Laboratory Lab results reviewed: Yes Laboratory comments +LEUKS/NITRITES Assessment & Plan Medical Decision Making MDM SEE BELOW Reassessment Reassessment time: 22:30 Reassessment PAIN RESOLVED Assessment & Plan Final Impression: (1) Urinary tract infection Depart Disposition: HOME, SELF-CARE Last Vital Signs Date Time Temp Pulse Resp B/P (MAP) Pulse Ox O2 Delivery O2 Flow Rate FiO2 11/07/19 21:55 100.2 89 20 139/74 97 Room Air Home Meds Active Scripts Sulfamethoxazole/Trimethoprim (BACTRIM DS TABLET) 1 Each Tablet, 1 TAB PO Q12H, #28 TAB Prov:GARLAND HERNANDEZ 11/07/19 Prednisone (PREDNISONE) 20 Mg Tab, 60 MG PO DAILY PRN for MODERATE PAIN (4-6), #15 TAB TAKE 3 20 MG PILLS Prov:GARLAND HERNANDEZ 11/07/19 Ondansetron (ONDANSETRON ODT) 8 Mg Tab.rapdis, 4 MG PO Q4HR PRN for NAUSEA AND VOMITING, #20 TAB 1 Refill Prov:GARLAND HERNANDEZ 11/07/19 Reported Medications [Takes No Daily Meds] No Conflict Check 06/10/16 Medications in the ED Ketorolac Tromethamine 60 mg ONCE ONCE IM ; Start 11/07/19 at 22:15; Stop 11/07/19 at 22:16; Status UNV Ceftriaxone Sodium 1 gm ONCE STAT IM ; Start 11/07/19 at 22:11; Stop 11/07/19 at 22:12; Status UNV Ondansetron HCl 4 mg ONCE ONCE PO ; Start 11/07/19 at 22:15; Stop 11/07/19 at 22:16; Status DC GARLAND HERNANDEZ Nov 07, 2019 22:24
[2019-11-07] MEDS ORDERED: PREDNISONE20 MG PO (22:36)
[2019-11-07] MEDS ORDERED: ONDANSETRON ODT8 MG PO (22:36)
[2019-11-07] MEDS ORDERED: BACTRIM DS TAB1 EACH PO (22:36)
== END 2019-11-07 22:55 | disposition home or self-care (01) ==
LOC: FSED 22:17
DX: N39.0 Urinary tract infection, site not specified (principal); R10.30 Lower abdominal pain, unspecified; F43.10 Post-traumatic stress disorder, unspecified; F41.9 Anxiety disorder, unspecified; G47.00 Insomnia, unspecified
CPT/HCPCS: 81003; 99283; J0696; J1885; Q0162

== ENCOUNTER 2021-02-15 08:53 | Emergency (ER) | payer OTHER ==
[~2021-02-15] VITALS: Ht 177.8 cm; Wt 102.1 kg
[~2021-02-15 08:53] MED LIST changes: +BACTRIM DS TAB1 EACH PO; +ONDANSETRON ODT8 MG PO; +PREDNISONE20 MG PO
[2021-02-15] MEDS ORDERED: SODIUM CHLORIDE 0.9% 1000ML 1,000 ML IV ONE (09:00)
[2021-02-15] MEDS ORDERED: ACETAMINOPHEN 325 MG TAB PO ONE (09:00)
[2021-02-15] MEDS: CEFTRIAXONE 1 GM in SODIUM CHLORIDE 0.9% 50ML 50 ML IV ONE ×2 (09:10→09:39)
[2021-02-15 09:18] LABS: BASOPHILS % 0.3 % (0.0-1.0); EOSINOPHILS % 0.3 % (0.0-6.0); HEMOGLOBIN 12.1 g/dL (12.0-16.0); LYMPHOCYTES # (AUTO) 1.5 (1.0-3.2); LYMPHOCYTES % 17.6 % (18.0-39.1); MEAN CORPUSCULAR HEMOGLOBIN 24.8 pg (28-32); MEAN CORPUSCULAR VOLUME 80.1 fL (81-99); MONOCYTES # (AUTO) 0.4 (0.2-0.8); NEUTROPHILS # (AUTO) 6.7 (2.1-6.9); PLATELET COUNT 324 x10e3/uL (140-360); RED BLOOD COUNT 4.87 x10e6/uL (3.6-5.1); RED CELL DISTRIBUTION WIDTH 15.3 % (11.7-14.4)
[2021-02-15 09:21] LABS: CLARITY,URINE TURBID (CLEAR); COLOR,URINE YELLOW (YELLOW); LEUKOCYTE ESTERASE ,URINE MODERATE (NEGATIVE); NITRITE,URINE POSITIVE (NEGATIVE); PROTEIN,URINE DIPSTICK 2+ (NEGATIVE)
[2021-02-15 09:22] LABS: KETONES,URINE NEGATIVE (NEGATIVE)
[2021-02-15 09:41] LABS: RBC,URINE >50 /HPF (0-5); WBC,URINE (MAN) >50 /HPF (0-5)
[2021-02-15 09:42] LABS: BACTERIA,URINE MANY /HPF; EPITHELIAL CELLS,URINE MODERATE /LPF
[2021-02-15 10:20] LABS: ALBUMIN 3.6 g/dL (3.5-5.0); ALBUMIN/GLOBULIN RATIO 1.3 (0.8-2.0); ANION GAP 12.5 mmol/L (8-16); CALCIUM 8.1 mg/dL (8.4-10.2); CREATININE, SERUM 0.68 mg/dL (0.57-1.11); POTASSIUM 3.5 mmol/L (3.5-5.1)
[2021-02-15] MEDS ORDERED: IBUPROFEN 400 MG TAB PO ONE (10:30)
[2021-02-15] MEDS ORDERED: SODIUM CHLORIDE 0.9% 1000ML 1,000 ML IV STA (10:40)
[2021-02-15] MEDS ORDERED: CEPHALEXIN500 MG PO (11:49)
[2021-02-15 11:52] VITALS: BP 118/84
== END 2021-02-15 11:55 | disposition home or self-care (01) ==
LOC: ER 09:03
DX: A41.9 Sepsis, unspecified organism (principal); N39.0 Urinary tract infection, site not specified; F43.10 Post-traumatic stress disorder, unspecified; F41.9 Anxiety disorder, unspecified; G47.00 Insomnia, unspecified
CPT/HCPCS: 36415; 80053; 81001; 81025; 83605; 85025; 87040; 87071; 87086; 87186; 87205; 99284; J0696; J7030

== ENCOUNTER 2021-02-15 19:56 | Emergency (ER) | payer OTHER ==
[~2021-02-15] VITALS: Ht 180.3 cm; Wt 119.7 kg
[~2021-02-15 19:56] MED LIST changes: +CEPHALEXIN500 MG PO
[2021-02-15] MEDS ORDERED: PIPERACILLIN/TAZOBACTAM 3.375 GM in SODIUM CHLORIDE 0.9% 50ML 50 ML IV STA (20:13)
[2021-02-15] MEDS ORDERED: SODIUM CHLORIDE 0.9% 1000ML 1,000 ML IV STA (20:13)
[2021-02-15] MEDS ORDERED: IBUPROFEN 600 MG TAB PO STA (20:13)
[2021-02-15 20:26] LABS: BASOPHILS % 0.4 % (0.0-1.0); EOSINOPHILS % 0.2 % (0.0-6.0); HEMOGLOBIN 11.1 g/dL (12.0-16.0); LYMPHOCYTES # (AUTO) 1.5 (1.0-3.2); LYMPHOCYTES % 18.1 % (18.0-39.1); MEAN CORPUSCULAR HEMOGLOBIN 24.4 pg (28-32); MEAN CORPUSCULAR HGB CONC 30.8 g/dL (31-35); MEAN CORPUSCULAR VOLUME 79.3 fL (81-99); MONOCYTES # (AUTO) 0.6 (0.2-0.8); MONOCYTES % 7.3 % (4.4-11.3); NEUTROPHILS # (AUTO) 6.1 (2.1-6.9); NEUTROPHILS % 73.8 % (38.7-80.0); PLATELET COUNT 297 x10e3/uL (140-360); RED BLOOD COUNT 4.54 x10e6/uL (3.6-5.1); RED CELL DISTRIBUTION WIDTH 15.3 % (11.7-14.4)
[2021-02-15] MEDS ORDERED: IBUPROFEN 600 MG TAB ONE (20:28)
[2021-02-15 20:40] LABS: CLARITY,URINE SL CLOUDY (CLEAR); COLOR,URINE STRAW (YELLOW); KETONES,URINE NEGATIVE (NEGATIVE); LEUKOCYTE ESTERASE ,URINE MODERATE (NEGATIVE); NITRITE,URINE NEGATIVE (NEGATIVE); PROTEIN,URINE DIPSTICK 1+ (NEGATIVE)
[2021-02-15 20:42] LABS: ALBUMIN 3.6 g/dL (3.5-5.0); ALBUMIN/GLOBULIN RATIO 1.3 (0.8-2.0); ANION GAP 11.4 mmol/L (8-16); CREATININE, SERUM 0.65 mg/dL (0.57-1.11); POTASSIUM 3.4 mmol/L (3.5-5.1)
[2021-02-15 20:47] LABS: BACTERIA,URINE MANY /HPF; RBC,URINE >50 /HPF (0-5); WBC,URINE (MAN) >50 /HPF (0-5)
[2021-02-15 20:48] LABS: EPITHELIAL CELLS,URINE MANY /LPF
[2021-02-15] MEDS ORDERED: SODIUM CHLORIDE 0.9% 50ML 50 ML ONE (21:26)
[2021-02-15] MEDS ORDERED: IOPAMIDOL 370 MG/ML 200 ML INFUS..BTL INJ ONE (21:26)
== END 2021-02-15 23:15 | disposition home or self-care (01) ==
LOC: ER 20:12
DX: R50.9 Fever, unspecified (principal); A41.9 Sepsis, unspecified organism; N12 Tubulo-interstitial nephritis, not specified as acute or chronic; R16.1 Splenomegaly, not elsewhere classified
CPT/HCPCS: 36415; 74177; 80053; 81001; 81025; 83605; 83690; 85025; 87040; 99284; J7030; Q9967

== ENCOUNTER 2022-08-15 10:56 | Emergency (ER) | payer OTHER ==
[~2022-08-15] VITALS: Ht 180.3 cm; Wt 119.0 kg
[2022-08-15] MEDS ORDERED: IBUPROFEN 600 MG TAB PO STA (11:50)
[2022-08-15] MEDS ORDERED: IBUPROFEN 600 MG TAB ONE (11:53)
[2022-08-15 12:01] VITALS: O2SAT 99
[2022-08-15] MEDS ORDERED: NAPROSYN500 MG PO (12:42)
== END 2022-08-15 12:56 | disposition home or self-care (01) ==
LOC: FSED 11:00
DX: R07.89 Other chest pain (principal); R07.1 Chest pain on breathing; F43.10 Post-traumatic stress disorder, unspecified; F41.9 Anxiety disorder, unspecified; F32.A Depression, unspecified; Z79.1 Long term (current) use of non-steroidal anti-inflammatories (NSAID)
CPT/HCPCS: 71046; 81003; 81025; 93005; 99284

== ENCOUNTER 2022-08-25 12:59 | Emergency (ER) | payer OTHER ==
[~2022-08-25] VITALS: Ht 180.3 cm; Wt 115.9 kg
[~2022-08-25 12:59] MED LIST changes: +NAPROSYN500 MG PO
[2022-08-25] MEDS ORDERED: PREDNISONE 20 MG TAB ONE (13:25)
[2022-08-25] MEDS ORDERED: KETOROLAC TROMETHAMINE 30 MG/ML VIAL ONE (13:26)
[2022-08-25] MEDS ORDERED: ACETAMINOPHEN 325 MG TAB ONE (13:26)
[2022-08-25] MEDS ORDERED: PREDNISONE 20 MG TAB PO ONE (13:30)
[2022-08-25] MEDS ORDERED: KETOROLAC TROMETHAMINE 60 MG/2 ML VIAL IM ONE (13:30)
[2022-08-25] MEDS ORDERED: ACETAMINOPHEN 325 MG TAB PO ONE (13:30)
[2022-08-25 13:59] VITALS: O2SAT 98
[2022-08-25] MEDS ORDERED: IBUPROFEN200 MG PO (14:07)
[2022-08-25] MEDS ORDERED: CEFDINIR300 MG PO (14:07)
[2022-08-25] MEDS ORDERED: NASACORT16.9 ML (14:07)
[2022-08-25] MEDS ORDERED: ALLEGRA-D 24 H1 EACH PO (14:07)
== END 2022-08-25 14:12 | disposition home or self-care (01) ==
LOC: FSED 13:03
DX: R51.9 Headache, unspecified (principal); J01.10 Acute frontal sinusitis, unspecified; F17.210 Nicotine dependence, cigarettes, uncomplicated
CPT/HCPCS: 70486; 81003; 81025; 96372; 99283; J1885; J7512